=== PATIENT | female | born 1985 | race African-American/Black ===

== ENCOUNTER 2022-09-15 10:18 | Outpatient (CLI) | payer BC ==
[2022-09-15 11:29] LABS: Hemoglobin 10.1 g/dL (12.0-15.5); Platelet Count 365 10x3/uL (150-450)
[2022-09-15 12:03] LABS: HBSAg Index 0.15 S/CO (0-0.99); HIV (1/2) Antibody/Antigen Non-Reactive (NonReactive); HIV 1/2 INDEX 0.08 S/CO (<1.00); Hep B Surf Ag Non-Reactive S/CO (NonReactive)
[2022-09-15 12:04] LABS: Syphilis Antibody Nonreactive (Nonreactive); Syphilis Antibody Index 0.06 S/CO (<1.00 Non-Reactive)
== END 2022-09-15 10:19 | disposition home or self-care (01) ==
LOC: CSHLAB 10:18
PROVIDERS: ATTEND Family Medicine
DX: Z01.812 Encounter for preprocedural laboratory examination (principal); O34.219 Maternal care for unspecified type scar from previous cesarean delivery
CPT/HCPCS: 36415; 85014; 85018; 85049; 86780; 87340; 87389